=== PATIENT | male | born 1955 | race African-American/Black ===

== ENCOUNTER 2024-05-05 11:34 | Inpatient (IN) | payer MEDICARE, OTHER ==
[~2024-05-05] VITALS: Ht 167.6 cm; Wt 72.0 kg
[~2024-05-05 11:34] MED LIST: METF-1185 PO; METH-822; NAPROSYN; TRAM50TA4
[2024-05-05 14:05] LABS: GLUCOMETER DEV NAME(LOC) ER.7; GLUCOSE,POINT OF CARE 86 MG/DL (70-110)
[2024-05-05] MEDS: OxyCODONE HCL/ACETAMINOPHEN 5-325 MG TABLET PO ONE ×2 (15:53→17:53)
[2024-05-05 22:00] LABS: GLUCOMETER DEV NAME(LOC) ER.7; GLUCOSE,POINT OF CARE 124 MG/DL (70-110)
[2024-05-05] MEDS ORDERED: MAGNESIUM HYDROXIDE SUSPENSION 30 ML UDCUP PO PRN (22:00)
[2024-05-05] MEDS ORDERED: ONDANSETRON HCL 4 MG/2 ML VIAL IVP PRN (22:00)
[2024-05-05] MEDS ORDERED: BISACODYL 10 MG RECTAL RECTAL SUPPOSITORY PR PRN (22:00)
[2024-05-05] MEDS ORDERED: MORPHINE SULFATE 2 MG/ML SYRINGE IVP PRN (22:00)
[2024-05-05] MEDS ORDERED: ZOLPIDEM TARTRATE 5 MG TABLET PO PRN (22:00)
[2024-05-05] MEDS: HYDROCODONE/ACETAMINOPHEN 5-325 MG TABLET PO ONE (23:13)
[2024-05-05] MEDS: HEPARIN SODIUM,PORCINE 5,000 UNITS/ML VIAL SQ SCH (23:32)
[2024-05-06 04:02] VITALS: BP 114/73; PULSE 74; RESP 18; TEMP 97.6; O2SAT 95
[2024-05-06] MEDS: HYDROCODONE/ACETAMINOPHEN 5-325 MG TABLET PO PRN (04:05)
[2024-05-06] MEDS: MetFORMIN HCL 850 MG TABLET PO SCH (08:00)
[2024-05-06 08:42] VITALS: BP 135/65; PULSE 84; RESP 17; TEMP 97.5; O2SAT 93
[2024-05-06] MEDS: PANTOPRAZOLE SODIUM 40 MG DR TABLET PO SCH (08:48)
[2024-05-06] MEDS: DOCUSATE SODIUM 100 MG CAPSULE PO SCH (08:48)
[2024-05-06 11:17] VITALS: BP 122/84; PULSE 67; RESP 18; TEMP 98; O2SAT 94
[2024-05-06 15:11] VITALS: BP 120/78; PULSE 84; RESP 19; TEMP 97.8; O2SAT 95
[2024-05-06] MEDS: GuaiFENesin [SUGAR-FREE] 200 MG/10 ML SOLUTION UDCUP PO PRN (16:41)
[2024-05-06 20:06] VITALS: BP 113/78; PULSE 88; RESP 19; TEMP 98; O2SAT 93
[2024-05-07] VITALS (7 sets, daily range): BP systolic 116–150; BP diastolic 73–88; PULSE 75–85; RESP 18–19; TEMP 96.6–98.1; O2SAT 92–95
[2024-05-07 06:53] LABS: CALCIUM, TOTAL 8.5 mg/dL (8.8-10.5); CREATININE 1.71 mg/dL (0.60-1.30)
[2024-05-07 07:04] LABS: BASOPHILS % (AUTO) 0.4 % (0.0-2.0); EOSINOPHILS % (AUTO) 1.3 % (1.0-6.0); HEMATOCRIT 50.5 % (41-53); HEMOGLOBIN 16.7 g/dL (13.5-17.5); LYMPHOCYTES # (AUTO) 0.5 K/uL (1.0-4.8); LYMPHOCYTES % (AUTO) 6.4 % (22.0-44.0); MEAN CORPUSCULAR HEMOGLOBIN 45.7 pg (26.0-34.0); MEAN CORPUSCULAR VOLUME 138 fL (80-100); MONOCYTES # (AUTO) 0.9 K/uL (0.1-1.0); MONOCYTES % (AUTO) 11.7 % (2.0-9.0); NEUTROPHILS # (AUTO) 6.3 K/uL (1.8-7.7); NEUTROPHILS % (AUTO) 80.2 % (40.0-70.0); PLATELET COUNT (AUTO) 189 K/uL (150-450); RED BLOOD CELL COUNT(AUTO) 3.65 MIL/uL (4.50-5.90); WHITE BLOOD COUNT (AUTO) 7.8 K/uL (4.5-11.0)
[2024-05-07 08:10] LABS: GLUCOMETER DEV NAME(LOC) 5S.1C; GLUCOSE,POINT OF CARE 96 MG/DL (70-110)
[2024-05-07] MEDS ORDERED: NALOXONE HCL 1 MG/ML 2 ML SYRINGE IVP PRN (10:45)
[2024-05-07] MEDS: VITAMIN B COMPLEX/FOLIC ACID 1 TABLET PO SCH (14:38)
[2024-05-07] MEDS: PIPERACILLIN SODIUM/TAZOBACTAM 2.25 GM in DEXTROSE 5%-WATER 50 ML IV SCH (16:00)
[2024-05-08 06:08] VITALS: BP 137/84; PULSE 88; RESP 20; TEMP 99; O2SAT 92
[2024-05-08 08:13] VITALS: BP 113/71; PULSE 91; RESP 18; TEMP 99.4; O2SAT 91
[2024-05-08] MEDS ORDERED: LEVOFLOXACIN 250 MG TABLET PO SCH (10:45)
[2024-05-08] MEDS ORDERED: MetroNIDAZOLE 500 MG TABLET PO SCH (10:45)
[2024-05-08 10:52] VITALS: O2SAT 95
[2024-05-08 13:26] LABS: CALCIUM, TOTAL 8.6 mg/dL (8.8-10.5); CREATININE 1.57 mg/dL (0.60-1.30); MAGNESIUM 1.7 mg/dL (1.80-2.40); POTASSIUM 4.1 mmol/L (3.5-5.1)
[2024-05-08 14:05] LABS: BASOPHILS % (AUTO) 0.1 % (0.0-2.0); EOSINOPHILS % (AUTO) 0.3 % (1.0-6.0); HEMOGLOBIN 15.8 g/dL (13.5-17.5); LYMPHOCYTES # (AUTO) 0.3 K/uL (1.0-4.8); LYMPHOCYTES % (AUTO) 2.1 % (22.0-44.0); MEAN CORPUSCULAR HEMOGLOBIN 44.8 pg (26.0-34.0); MEAN CORPUSCULAR HGB CONC 32.9 G/dL (31.0-37.0); MEAN CORPUSCULAR VOLUME 136 fL (80-100); MONOCYTES # (AUTO) 0.9 K/uL (0.1-1.0); MONOCYTES % (AUTO) 7.1 % (2.0-9.0); NEUTROPHILS # (AUTO) 11.1 K/uL (1.8-7.7); NEUTROPHILS % (AUTO) 90.4 % (40.0-70.0); PLATELET COUNT (AUTO) 215 K/uL (150-450); RED BLOOD CELL COUNT(AUTO) 3.52 MIL/uL (4.50-5.90); RED CELL DISTRIBUTION WIDTH 13.6 % (11.5-14.5); WHITE BLOOD COUNT (AUTO) 12.3 K/uL (4.5-11.0)
[2024-05-08 15:55] VITALS: BP 136/93; PULSE 79; RESP 20; TEMP 98.5; O2SAT 92
[2024-05-08] MEDS: PIPERACILLIN SODIUM/TAZOBACTAM 2.25 GM in DEXTROSE 5%-WATER 50 ML IV SCH (17:40)
[2024-05-08 18:48] VITALS: O2SAT 96
[2024-05-08 20:07] VITALS: BP 120/77; PULSE 83; RESP 20; TEMP 98.8; O2SAT 93
[2024-05-08] MEDS: HYDROmorphone HCL 2 MG/ML SYRINGE IVP PRN (21:11)
[2024-05-08] MEDS ORDERED: SODIUM CHLORIDE 0.9% 500 ML IV ONE (23:33)
[2024-05-09 04:47] VITALS: BP 137/90; PULSE 70; RESP 20; TEMP 98.1; O2SAT 94
[2024-05-09 09:00] VITALS: BP 126/88; PULSE 70; RESP 19; TEMP 98.2; O2SAT 95
[2024-05-09] MEDS: PIPERACILLIN/TAZO 3.375 GM/D5W 50 ML IV SCH (09:36)
[2024-05-09 13:31] LABS: BASOPHILS % (AUTO) 0.3 % (0.0-2.0); EOSINOPHILS % (AUTO) 1.3 % (1.0-6.0); HEMATOCRIT 49.3 % (41-53); HEMOGLOBIN 16.3 g/dL (13.5-17.5); LYMPHOCYTES # (AUTO) 0.4 K/uL (1.0-4.8); LYMPHOCYTES % (AUTO) 4.8 % (22.0-44.0); MEAN CORPUSCULAR HGB CONC 33.1 G/dL (31.0-37.0); MEAN CORPUSCULAR VOLUME 136 fL (80-100); MONOCYTES # (AUTO) 1.4 K/uL (0.1-1.0); NEUTROPHILS # (AUTO) 7.3 K/uL (1.8-7.7); NEUTROPHILS % (AUTO) 78.6 % (40.0-70.0); PLATELET COUNT (AUTO) 214 K/uL (150-450); RED BLOOD CELL COUNT(AUTO) 3.62 MIL/uL (4.50-5.90); RED CELL DISTRIBUTION WIDTH 13.8 % (11.5-14.5); WHITE BLOOD COUNT (AUTO) 9.3 K/uL (4.5-11.0)
[2024-05-09 14:04] LABS: CALCIUM, TOTAL 8.5 mg/dL (8.8-10.5); CREATININE 1.61 mg/dL (0.60-1.30); MAGNESIUM 1.7 mg/dL (1.80-2.40)
[2024-05-09] MEDS: MAGNESIUM OXIDE 400 MG TABLET PO ONE (14:14)
[2024-05-09 14:48] VITALS: BP 146/91; PULSE 75; RESP 18; TEMP 98.1; O2SAT 92
[2024-05-09 20:12] VITALS: BP 115/72; PULSE 77; RESP 18; TEMP 98.1; O2SAT 94
[2024-05-10 08:26] VITALS: BP 149/97; PULSE 66; RESP 19; TEMP 98.3; O2SAT 97
[2024-05-10] MEDS ORDERED: MAGNESIUM OXIDE 400 MG TABLET PO ONE (12:15)
[2024-05-10] MEDS ORDERED: VITA-369 PO (13:01)
[2024-05-10] MEDS ORDERED: ACET-2247 PO (13:02)
[2024-05-10] MEDS ORDERED: BISA10SU11 PR (13:03)
[2024-05-10] MEDS ORDERED: AMOX1TAB15 PO (13:05)
[2024-05-10] MEDS ORDERED: GUAIFDM PO (13:05)
[2024-05-10] MEDS: SODIUM CHLORIDE 0.9% 1,000 ML IV ONE (14:09)
[2024-05-10 15:47] VITALS: BP 138/87; PULSE 64; RESP 19; TEMP 98.4; O2SAT 98
[2024-05-10] MEDS: AMOX TR/POT CLAV 500 MG/125 MG TABLET PO SCH (19:53)
[2024-05-10 20:02] VITALS: BP 118/78; PULSE 78; RESP 18; TEMP 98.4; O2SAT 95
[2024-05-11 03:01] VITALS: BP 165/102; PULSE 67; RESP 20; TEMP 97.7; O2SAT 97
[2024-05-11 09:00] VITALS: BP 139/88; PULSE 67; RESP 20; TEMP 98.4; O2SAT 90
[2024-05-11 15:54] VITALS: BP 131/86; PULSE 65; RESP 20; TEMP 98.2; O2SAT 93
[2024-05-11 19:55] VITALS: BP 131/86; PULSE 79; RESP 19; TEMP 98.3; O2SAT 95
[2024-05-12 04:08] VITALS: BP 143/95; PULSE 76; RESP 17; TEMP 98.2; O2SAT 95
[2024-05-12 08:54] VITALS: BP 138/89; PULSE 69; RESP 18; TEMP 98.3; O2SAT 92
[2024-05-12 16:00] VITALS: BP 150/97; PULSE 73; RESP 18; TEMP 98.3; O2SAT 90
[2024-05-12 18:52] VITALS: O2SAT 94
[2024-05-12 19:36] VITALS: BP 123/77; PULSE 74; RESP 18; TEMP 98.3; O2SAT 95
[2024-05-13 04:38] VITALS: BP 148/92; PULSE 70; RESP 18; TEMP 98.3; O2SAT 95
[2024-05-13 08:33] VITALS: BP 127/87; PULSE 75; RESP 19; TEMP 98; O2SAT 96
[2024-05-13 11:28] VITALS: BP 136/99; PULSE 75; RESP 18; TEMP 98; O2SAT 95
[2024-05-13 16:33] VITALS: BP 126/83; PULSE 75; RESP 16; TEMP 98.2; O2SAT 95
[2024-05-13 19:45] VITALS: BP 124/83; PULSE 83; RESP 18; TEMP 98.3; O2SAT 94
[2024-05-14 04:55] VITALS: BP 129/85; PULSE 80; RESP 20; TEMP 97.8; O2SAT 92
[2024-05-14 07:33] VITALS: BP 143/97; PULSE 68; RESP 18; TEMP 98; O2SAT 96
[2024-05-14 08:00] VITALS: BP 110/69; PULSE 80; RESP 19; TEMP 98; O2SAT 97
[2024-05-14 16:19] VITALS: BP 119/75; PULSE 81; RESP 18; TEMP 98.1; O2SAT 97
[2024-05-14 21:10] VITALS: BP 136/94; PULSE 76; RESP 18; TEMP 98.5; O2SAT 97
[2024-05-15 04:30] VITALS: BP 154/107; PULSE 74; RESP 20; TEMP 98.2; O2SAT 92
[2024-05-15 08:05] VITALS: BP 124/76; PULSE 71; RESP 18; TEMP 98; O2SAT 96
[2024-05-15 19:11] LABS: BASOPHILS % (AUTO) 0.5 % (0.0-2.0); EOSINOPHILS % (AUTO) 1.3 % (1.0-6.0); HEMOGLOBIN 15.9 g/dL (13.5-17.5); LYMPHOCYTES # (AUTO) 0.6 K/uL (1.0-4.8); LYMPHOCYTES % (AUTO) 7.4 % (22.0-44.0); MEAN CORPUSCULAR HEMOGLOBIN 43.8 pg (26.0-34.0); MEAN CORPUSCULAR HGB CONC 33.1 G/dL (31.0-37.0); MEAN CORPUSCULAR VOLUME 133 fL (80-100); MONOCYTES # (AUTO) 0.6 K/uL (0.1-1.0); MONOCYTES % (AUTO) 6.8 % (2.0-9.0); NEUTROPHILS # (AUTO) 6.9 K/uL (1.8-7.7); PLATELET COUNT (AUTO) 304 K/uL (150-450); RED BLOOD CELL COUNT(AUTO) 3.62 MIL/uL (4.50-5.90); RED CELL DISTRIBUTION WIDTH 14.3 % (11.5-14.5); WHITE BLOOD COUNT (AUTO) 8.3 K/uL (4.5-11.0)
[2024-05-15 19:33] LABS: ANION GAP 12 mmol/L (8-16); CALCIUM, TOTAL 8.6 mg/dL (8.8-10.5); CARBON DIOXIDE 22 mmol/L (22-29); CHLORIDE 97 mmol/L (98-107); CREATININE 1.39 mg/dL (0.60-1.30); GLOMERULAR FILTR. RATE CALC > 60 mL/min (>60); GLUCOSE,RANDOM 89 mg/dL (70-110); POTASSIUM 4.6 mmol/L (3.5-5.1); SODIUM SERUM 131 mmol/L (136-145); UREA NITROGEN, BLOOD 17 mg/dL (7-18)
[2024-05-15 19:35] VITALS: BP 120/78; PULSE 72; RESP 18; TEMP 98.5; O2SAT 93
[2024-05-15 20:06] LABS: PATHOLOGY REVIEW, DIFF YES; RBC MORPHOLOGY COMMENT ABNORMAL RBC MORPH
[2024-05-16 04:55] VITALS: BP 136/88; PULSE 73; RESP 18; TEMP 97.5; O2SAT 95
[2024-05-16] MEDS: ACETAMINOPHEN 325 MG TABLET PO PRN (08:12)
[2024-05-16 08:50] VITALS: BP 142/98; PULSE 75; RESP 18; TEMP 98.2; O2SAT 98
[2024-05-16 16:20] VITALS: BP 156/96; PULSE 77; RESP 18; TEMP 97.1; O2SAT 98
[2024-05-16 20:24] VITALS: BP 130/83; PULSE 77; RESP 18; TEMP 98.6; O2SAT 96
[2024-05-17 05:08] VITALS: BP 133/83; PULSE 74; RESP 18; TEMP 98.3; O2SAT 95
[2024-05-17 08:03] VITALS: BP 128/85; PULSE 75; RESP 20; TEMP 98.6; O2SAT 97
[2024-05-17 14:38] VITALS: BP 142/98; PULSE 75; RESP 18; TEMP 98.6; O2SAT 94
[2024-05-17 19:40] VITALS: BP 143/93; PULSE 80; RESP 18; TEMP 98.2; O2SAT 95
[2024-05-18 04:27] VITALS: BP 140/88; PULSE 76; RESP 18; TEMP 98.3; O2SAT 94
[2024-05-18 08:01] VITALS: BP 132/87; PULSE 77; RESP 19; TEMP 98.4; O2SAT 96
[2024-05-18 19:44] VITALS: BP 130/84; PULSE 77; RESP 18; TEMP 98.3; O2SAT 93
[2024-05-19 03:53] VITALS: BP 142/79; PULSE 74; RESP 18; TEMP 98.5; O2SAT 95
[2024-05-19 09:00] VITALS: BP 131/81; PULSE 74; RESP 18; TEMP 97.9; O2SAT 95
[2024-05-19] MEDS ORDERED: DOCU-385 PO (15:56)
[2024-05-19] MEDS ORDERED: HEPA500018 SQ (15:57)
[2024-05-19 16:20] VITALS: BP 125/85; PULSE 83; RESP 18; TEMP 98.3; O2SAT 93
== END 2024-05-19 18:50 | DRG 347 ==
LOC: EMS 11:36 → EDH 21:55 → 5S 05-06 02:03 → 4E 05-07 23:30 → 6S 05-09 16:10
PROVIDERS: ADMIT Internal Medicine; ATTEND Internal Medicine
PROC: 05HB33Z Insertion of Infusion Device into Right Basilic Vein, Percutaneous Approach (ICD-10-PCS; principal; 2024-05-08)
DX: M48.55XA Collapsed vertebra, not elsewhere classified, thoracolumbar region, initial encounter for fracture (principal); J15.69 Pneumonia due to other Gram-negative bacteria; E44.0 Moderate protein-calorie malnutrition; J90 Pleural effusion, not elsewhere classified; E11.22 Type 2 diabetes mellitus with diabetic chronic kidney disease; E87.1 Hypo-osmolality and hyponatremia; E11.40 Type 2 diabetes mellitus with diabetic neuropathy, unspecified; F17.200 Nicotine dependence, unspecified, uncomplicated; F11.20 Opioid dependence, uncomplicated; I12.9 Hypertensive chronic kidney disease with stage 1 through stage 4 chronic kidney disease, or unspecified chronic kidney disease; E11.51 Type 2 diabetes mellitus with diabetic peripheral angiopathy without gangrene; G89.29 Other chronic pain; Z79.01 Long term (current) use of anticoagulants; Z89.512 Acquired absence of left leg below knee; Z91.199 Patient's noncompliance with other medical treatment and regimen due to unspecified reason; Z59.00 Homelessness unspecified; W18.39XA Other fall on same level, initial encounter; Y93.89 Activity, other specified; Y92.128 Other place in nursing home as the place of occurrence of the external cause; Y99.8 Other external cause status; Z68.25 Body mass index [BMI] 25.0-25.9, adult; N18.30 Chronic kidney disease, stage 3 unspecified
CPT/HCPCS: 36245; 36569; 70450; 71045; 72125; 72128; 72131; 73503; 76937; 80048; 82962; 83036; 83735; 83880; 84145; 85025; 87635; 97110; 97163; 97167; 97530; 97535; 99285; G0378; J1170; J1644; J2543; J7040; J7060; 36415-L1; 36415-TC